=== PATIENT | female | born 1990 | race American Indian/Alaskan Native ===

== ENCOUNTER 2018-03-26 08:59 | Emergency (ER) | payer OTHER ==
--- NOTE | 2018-03-26 11:04 | Emergency Department Report ---
- General Chief complaint: Wound/Laceration Stated complaint: FINGER INFECTION/MOUTH EAR PAIN Time Seen by Provider: 03/26/18 10:17 Source: patient Mode of arrival: Ambulatory Limitations: No Limitations - History of Present Illness Initial comments: 27-year-old female with lesion to her right middle finger 2 months. Patient is 2 weeks . 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 Patient denies fever, purulent drainage. Patient reports pain to finger radiating into her entire hand. Denies swelling. MD complaint: lesion -: month(s) (2) Location: R hand (middle finger) Severity: mild Quality: aching Consistency: constant Improves with: none Worsens with: palpation Context: other (recent ) - Related Data Home Medications Medication Instructions Recorded Confirmed Last Taken Multivitamin [Multi Vitamin Daily] 07/21/14 07/21/14 07/18/14 Previous Rx's Medication Instructions Recorded Last Taken Type Benzonatate [Tessalon Perles] 100 mg PO Q8HR #30 capsule 07/21/14 Unknown Rx Ibuprofen [Motrin] 800 mg PO Q8H PRN #30 tablet 07/21/14 Unknown Rx Ondansetron [Zofran Odt] 4 mg PO Q6H #10 tab.rapdis 07/21/14 Unknown Rx Prednisone [Prednisone 10 mg 10 mg PO .TAPER #1 tab.ds.pk 07/21/14 Unknown Rx (6-Day Pack, 21 Tabs)] Sulfamethoxazole/Trimethoprim 1 each PO BID #14 tablet 07/21/14 Unknown Rx [Bactrim Ds] Allergies Allergy/AdvReac Type Severity Reaction Status Date / Time No Known Allergies Allergy Unverified 07/21/14 11:18 Abscess Boil HPI - HPI Chief Complaint: Wound/Laceration Stated Complaint: FINGER INFECTION/MOUTH EAR PAIN Time Seen by Provider: 03/26/18 10:17 Home Medications: Home Medications Medication Instructions Recorded Confirmed Last Taken Multivitamin [Multi Vitamin Daily] 07/21/14 07/21/14 07/18/14 Previous Rx's Medication Instructions Recorded Last Taken Type Benzonatate [Tessalon Perles] 100 mg PO Q8HR #30 capsule 07/21/14 Unknown Rx Ibuprofen [Motrin] 800 mg PO Q8H PRN #30 tablet 07/21/14 Unknown Rx Ondansetron [Zofran Odt] 4 mg PO Q6H #10 tab.rapdis 07/21/14 Unknown Rx Prednisone [Prednisone 10 mg 10 mg PO .TAPER #1 tab.ds.pk 07/21/14 Unknown Rx (6-Day Pack, 21 Tabs)] Sulfamethoxazole/Trimethoprim 1 each PO BID #14 tablet 07/21/14 Unknown Rx [Bactrim Ds] Allergies/Adverse Reactions: Allergies Allergy/AdvReac Type Severity Reaction Status Date / Time No Known Allergies Allergy Unverified 07/21/14 11:18 ED Review of Systems ROS: Stated complaint: FINGER INFECTION/MOUTH EAR PAIN Other details as noted in HPI Comment: All other systems reviewed and negative Constitutional: denies: fever ENT: throat pain Musculoskeletal: as per HPI ED Past Medical Hx - Past Medical History Additional medical history: bronchitis recently had child March 11 - Social History Smoking Status: Former Smoker - Medications Home Medications: Home Medications Medication Instructions Recorded Confirmed Last Taken Type Benzonatate [Tessalon Perles] 100 mg PO Q8HR #30 capsule 07/21/14 Unknown Rx Ibuprofen [Motrin] 800 mg PO Q8H PRN #30 tablet 07/21/14 Unknown Rx Multivitamin [Multi Vitamin Daily] 07/21/14 07/21/14 07/18/14 History Ondansetron [Zofran Odt] 4 mg PO Q6H #10 tab.rapdis 07/21/14 Unknown Rx Prednisone [Prednisone 10 mg 10 mg PO .TAPER #1 tab.ds.pk 07/21/14 Unknown Rx (6-Day Pack, 21 Tabs)] Sulfamethoxazole/Trimethoprim 1 each PO BID #14 tablet 07/21/14 Unknown Rx [Bactrim Ds] ED Physical Exam - General Limitations: No Limitations General appearance: alert, in no apparent distress - Head Head exam: Present: atraumatic, normocephalic - Eye Eye exam: Present: normal appearance - ENT ENT exam: Present: mucous membranes moist - Neck Neck exam: Present: normal inspection, full ROM - Respiratory Respiratory exam: Present: normal lung sounds bilaterally. Absent: respiratory distress - Cardiovascular Cardiovascular Exam: Present: regular rate, normal rhythm - Extremities Exam Extremities exam: Present: other (1cm nodule present to palmar surface of right middle finger, bright red, w/ moist surface; no bleeding or purulent drainage presemt; no swelling present in finger or hand) - Neurological Exam Neurological exam: Present: alert, oriented X3, motor sensory deficit - Psychiatric Psychiatric exam: Present: normal affect, normal mood - Skin Skin exam: Present: warm, dry, normal color, other (skin exam on finger as described above) ED Course Vital Signs 03/26/18 09:17 Temperature 98.6 F Pulse Rate 71 Respiratory 18 Rate Blood Pressure 179/107 Critical care attestation.: If time is entered above; I have spent that time in minutes in the direct care of this critically ill patient, excluding procedure time. ED Disposition Clinical Impression: Pyogenic granuloma of skin Disposition: DC- TO HOME OR SELFCARE Is pt being admited?: No Condition: Stable Additional Instructions: Keep area clean and covered. Do not manipulate or attempt to peel off. Follow- up with dermatology. Return if you bein to experience and fever, swelling, discharge, or severe pain. Referrals: [facility] [Provider Group] - 3-5 Days [facility] [Outside] - 3-5 Days RAFY ROSEN MD [Staff Physician] - 3-5 Days NONA CAVAZOS MD [Staff Physician] - 3-5 Days FRACISCO MOSQUERA MD [Referring] - 3-5 Days Time of Disposition: 11:10
[2018-03-26 11:07] VITALS: BP 128/72
== END 2018-03-26 11:25 | disposition home or self-care (01) ==
LOC: ED 08:59
DX: O90.89 Other complications of the puerperium, not elsewhere classified (principal); L98.0 Pyogenic granuloma; Z87.891 Personal history of nicotine dependence
CPT/HCPCS: 99282